=== PATIENT | male | born 1960 | race Caucasian/White ===

== ENCOUNTER 2016-10-30 10:32 | Inpatient (IN) | payer BC ==
[2016-10-30] VITALS (13 sets, daily range): BP systolic 138–192; BP diastolic 82–105; PULSE 90–112; RESP 19–21; TEMP 97.8–98.4; O2SAT 96–100
[2016-10-30] MEDS ORDERED: PROPOFOL 500 MG/50 ML INJ 0 ML ONE (10:36)
[2016-10-30] MEDS ORDERED: PROPOFOL 1000 MG/100 ML INJ 100 ML ONE (10:36)
[2016-10-30] MEDS ORDERED: ceFAZolin 2 GM PREMIX 50 ML ONE (10:43)
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
[2016-10-30 10:56] LABS: I-STAT POTASSIUM 4.3 MMOL/L (3.5-4.9)
[2016-10-30 10:59] LABS: AUTOMATED NEUTROPHIL # 10.5 TH/MM3 (1.8-7.7); BASOPHIL # 0.1 TH/MM3 (0-0.2); BASOPHIL % 0.4 % (0.0-2.0); EOSINOPHIL # 0.3 TH/MM3 (0-0.4); EOSINOPHIL % 2.4 % (0.0-4.0); HEMATOCRIT 42.8 % (39.0-51.0); HEMO FLAGS DIFF FINAL; LYMPH % 14.6 % (9.0-44.0); MEAN CELL VOLUME 89.7 FL (80.0-100.0); MEAN CORPUSCULAR HEMOGLOBIN 29.5 PG (27.0-34.0); MEAN CORPUSCULAR HGB CONC 32.8 % (32.0-36.0); MONO % 6.7 % (0.0-8.0); NEUT % 75.9 % (16.0-70.0); PLATELET COUNT 431 TH/MM3 (150-450); RED BLOOD COUNT 4.78 MIL/MM3 (4.50-5.90); RED CELL DISTRIBUTION WIDTH 13.8 % (11.6-17.2); WHITE BLOOD COUNT 13.8 TH/MM3 (4.0-11.0)
[2016-10-30] MEDS ORDERED: MISCELLANEOUS NURSING INFORMATION XX SCH (11:00)
[2016-10-30] MEDS ORDERED: MORPHINE SULFATE 4 MG/ML INJ IV PRN ×2 (11:00→20:00)
[2016-10-30] MEDS ORDERED: MAGNESIUM HYDROXIDE SUSP 30 ML CUP PO PRN (11:00)
[2016-10-30] MEDS ORDERED: ENALAPRILAT 1.25 MG/ML VIAL IV PRN (11:00)
[2016-10-30] MEDS ORDERED: SODIUM CHLORIDE 0.9% FLUSH 10 ML FLUSH IV FLUSH PRN (11:00)
[2016-10-30] MEDS ORDERED: ONDANSETRON HCL 4 MG/2 ML VIAL IV PRN (11:00)
[2016-10-30] MEDS ORDERED: ACETAMINOPHEN 325 MG TAB PO PRN (11:00)
--- NOTE | 2016-10-30 11:00 | RADRPT ---
EXAM DATE/TIME: 10/30/2016 10:25 [facility] COMPARISON: No previous studies available for comparison. INDICATIONS : Trauma from fall, pain. MEDICAL HISTORY : None. SURGICAL HISTORY : None. ENCOUNTER: Initial ACUITY: 1 day PAIN SCORE: Non-responsive. LOCATION: Bilateral chest FINDINGS: The lungs are under aerated. The cardiomediastinal contours are unremarkable. Osseous structures ar e intact. CONCLUSION: Under aerated otherwise negative. Mike Reeves MD FACR on October 30, 2016 at 10:58 Board Certified Radiologist. This report was verified electronically.
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
[2016-10-30] MEDS ORDERED: IOHEXOL 350 MG/ML 10 ML VIAL (for RAD DIAG) IVCONTRAST ONE (11:04)
[2016-10-30 11:09] LABS: APTT (PATIENT) 21.6 SEC (24.3-30.1); INTERNATIONAL NORMALIZED RATIO 0.9 RATIO; PROTHROMBIN TIME - PATIENT 10.4 SEC (9.8-11.6)
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
[2016-10-30] MEDS ORDERED: VECURONIUM BROMIDE 10 MG VIAL ONE (11:20)
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
[2016-10-30] MEDS: SODIUM CHLOR 0.9% 1000 ML INJ 1,000 ML IV SCH ×2 (12:00→23:20)
[2016-10-30] MEDS ORDERED: LABETALOL HCL 100 MG/20 ML VIAL IV PUSH PRN (12:15)
[2016-10-30] MEDS ORDERED: MORPHINE SULFATE 4 MG/ML INJ IV PUSH PRN (12:15)
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
[2016-10-30] MEDS ORDERED: LIDOCAINE HCL 5% PATCH T-DERMAL SCH (12:30)
[2016-10-30] MEDS ORDERED: HYDROmorphone HCL PF 1 MG/ML VIAL IV PUSH ONE (13:15)
[2016-10-30] MEDS: LIDOCAINE HCL 5% PATCH T-DERMAL SCH (13:16)
[2016-10-30] MEDS: PANTOPRAZOLE SODIUM 40 MG VIAL IVP SCH (13:16)
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
[2016-10-30] MEDS ORDERED: KETOROLAC TROMETHAMINE 30 MG/ML (IVP) VIAL IV PUSH SCH (18:00)
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
[2016-10-30] MEDS: CHLORHEXIDINE 0.12% (ORAL KIT) 15 ML CUP MT SCH (19:51)
[2016-10-30] MEDS: ACETAMINOPHEN/HYDROcodone 325 MG/5 MG TAB PO PRN (20:05)
[2016-10-30] MEDS: KETOROLAC TROMETHAMINE 30 MG/ML (IVP) VIAL IV PUSH PRN (23:16)
[2016-10-31] VITALS (11 sets, daily range): BP systolic 127–159; BP diastolic 68–82; PULSE 68–96; RESP 15–28; TEMP 98.1–98.8; O2SAT 97–99
[2016-10-31] MEDS: REMOVE OLD LIDOCAINE PATCH T-DERMAL SCH (02:03)
[2016-10-31] MEDS: ACETAMINOPHEN/HYDROcodone 325 MG/10 MG TAB PO PRN ×2 (02:44→09:29)
--- NOTE | 2016-10-31 05:25 | RADRPT ---
EXAM DATE/TIME: 10/31/2016 04:10 [facility] COMPARISON: CHEST SINGLE AP, October 30, 2016, 10:25. INDICATIONS : Chest and rib pain post trauma alert. MEDICAL HISTORY : None. SURGICAL HISTORY : None. ENCOUNTER: Subsequent ACUITY: 2 days PAIN SCORE: 8/10 LOCATION: Bilateral chest FINDINGS: A single view of the chest demonstrates the lungs to be symmetrically hypoinflated but clear of acute infiltrate. No effusions. Accounting for low lung volume heart size is normal. Anterior fixation of the lower cervical spine. Right clavicular fracture and possible right scapular fracture with degener ative changes of the dorsal spine.. CONCLUSION: 1. Hypoinflation. Lungs are clear. 2. Right clavicular and possible right scapular fractures. Emeterio Goldsmith MD on October 31, 2016 at 5:21 Board Certified Radiologist. This report was verified electronically.
[2016-10-31] MEDS: KETOROLAC TROMETHAMINE 30 MG/ML (IVP) VIAL IV PUSH PRN ×2 (05:59→19:07)
[2016-10-31 07:33] LABS: AUTOMATED NEUTROPHIL # 3.7 TH/MM3 (1.8-7.7); BASOPHIL % 0.2 % (0.0-2.0); EOSINOPHIL % 0.2 % (0.0-4.0); HEMATOCRIT 37.9 % (39.0-51.0); HEMO FLAGS DIFF FINAL; LYMPH % 16.5 % (9.0-44.0); MEAN CELL VOLUME 89.6 FL (80.0-100.0); MEAN CORPUSCULAR HEMOGLOBIN 29.8 PG (27.0-34.0); MEAN CORPUSCULAR HGB CONC 33.3 % (32.0-36.0); MONO % 18.8 % (0.0-8.0); NEUT % 64.3 % (16.0-70.0); PLATELET COUNT 348 TH/MM3 (150-450); RED BLOOD COUNT 4.24 MIL/MM3 (4.50-5.90); RED CELL DISTRIBUTION WIDTH 13.5 % (11.6-17.2); WHITE BLOOD COUNT 5.8 TH/MM3 (4.0-11.0)
[2016-10-31 07:56] LABS: BICARBONATE 25.5 MEQ/L (21.0-32.0); POTASSIUM 3.8 MEQ/L (3.5-5.1)
[2016-10-31] MEDS: CHLORHEXIDINE 0.12% (ORAL KIT) 15 ML CUP MT SCH ×2 (08:00→20:00)
[2016-10-31] MEDS: METHOCARBAMOL 500 MG TAB PO SCH ×3 (09:28→22:00)
[2016-10-31] MEDS: DOCUSATE SODIUM 100 MG CAP PO SCH ×2 (09:28→20:53)
[2016-10-31] MEDS: SODIUM CHLOR 0.9% 1000 ML INJ 1,000 ML IV SCH ×2 (09:29→18:41)
[2016-10-31] MEDS: BACITRACIN TOP OINT 15 GM TUBE TOP SCH ×2 (09:29→20:54)
[2016-10-31] MEDS: ENOXAPARIN SODIUM 40 MG/0.4 ML SYRINGE SQ SCH (11:59)
[2016-10-31] MEDS: PANTOPRAZOLE SODIUM 40 MG VIAL IVP SCH (12:00)
[2016-10-31] MEDS: LIDOCAINE HCL 5% PATCH T-DERMAL SCH (12:00)
--- NOTE | 2016-10-31 12:15 | HHI.CCPN ---
Subjective Brief History 64-year-old male fell off the roof was brought in as per T1 trauma alert intubated and ventilated and a spinal board with c-collar in place. Apparently patient was unresponsive on seen could not protect his upper airway and has been intubation Patient underwent full diagnostic workup and is noted to have following injuries Brain concussion and retrograde amnesia Right comminuted clavicular fracture Right scapular fracture First second and third rib fracture 24 Hour Review/Hospital Course On arrival patient is intubated and ventilated since then has been extubated by the intensive care team Patient is awake alert but somewhat repetitive questions clearly sustaining brain concussion in retrograde amnesia Patient does not remember anything of the accident or events preceding 10/31/16 Patient doing well he is awake alert and oriented and now remembers being on the roof Some pain in the chest consistent with fractured ribs and fractured clavicle Will place sling Abdomen is soft active bowel sounds transfer patient to the floor Likely patient will be able to go home and next day or two Objective Vital Signs Date Time Temp Pulse Resp B/P (MAP) Pulse Ox O2 Delivery O2 Flow Rate FiO2 10/31/16 10:00 78 10/31/16 08:00 98.8 20 130/76 (94) 97 10/31/16 07:00 Nasal Cannula 2.00 10/30/16 11:12 100 Intake and Output 10/31/16 10/31/16 11/01/16 08:00 16:00 00:00 Intake Total 1385 ml 1000 ml Output Total 400 ml Balance 985 ml 1000 ml Result Diagram: 10/31/16 0600 10/31/16 0600 Imaging Last 24 hours Impressions Chest X-Ray 10/31/16 0000 Signed Impressions: Service Date/Time: Monday, October 31, 2016 04:10 - CONCLUSION: 1. Hypoinflation. Lungs are clear. 2. Right clavicular and possible right scapular fractures. Emeterio Goldsmith MD Exam [employer] AD[employer]ISTRATOR Awake alert oriented Hemodynamic/Cardiac Hemodynamically intact Pulmonary/Respiratory Bilateral good breath sounds and minimal pulmonary contusion underlying the rib fractures Abdomen/GI Nutrition Abdomen soft active bowel sounds diet well tolerated Renal/I&O Preserved renal function Assessment and Plan Attestation Transfer patient to floor out of bed and extensive physical and occupational therapy Critical care 35 minutes Sushma Matos MD Oct 31, 2016 12:15
[2016-10-31] MEDS: ACETAMINOPHEN/HYDROcodone 325 MG/5 MG TAB PO PRN (14:16)
--- NOTE | 2016-10-31 14:40 | MB ---
cc: FRANCES JURADO DATE OF CONSULTATION: 10/31/2016. ALSO KNOWN : ANIKET [id number]. REASON FOR CONSULTATION: Right-sided clavicle fracture. Right scapula fracture. HISTORY OF PRESENT ILLNESS: This patient is a male in his 50s who was brought to the [facility] as a trauma alert after a fall off a roof. He is a resident of [place]. He came down to [place] where he has a house there as well to check on the house. He was on the roof. He fell off the roof. He believes he had loss of consciousness because he does not have recollection of exactly what happened. He was initially intubated at the scene due to concern for head injury and airway protection. After transfer to [facility], he has been extubated. He is currently in the intensive care unit. Imaging to include x-ray and CT scan has been performed, which does show evidence of a right-sided scapula fracture and clavicle fracture. He also had some rib fractures on the right side. He sustained a scalp laceration as well. He is currently awake and alert and sitting at the bedside with his accompanying him. PAST MEDICAL HISTORY: His past medical history is negative. ALLERGIES: CODEINE. REVIEW OF SYSTEMS: A twelve-point review of systems is negative other than the history of present illness. MEDICATIONS: He does not take any medications at home. SOCIAL HISTORY: Nonsmoker and non-drinker. PHYSICAL EXAMINATION: VITAL SIGNS: Temperature 98, pulse is 80, respirations 16, blood pressure is 155/88. HEAD, EYES, EARS, NOSE, THROAT: Normocephalic. He has a closed laceration on the scalp. NECK: The neck is supple. LUNGS: Clear. HEART: Regular rate and rhythm. ABDOMEN: Abdomen soft and nontender. EXTREMITIES: The right shoulder and scapular regions have swelling and ecchymosis. The compartments are soft. He can flex and extend his elbows, wrists and digits, 2+ radial pulses bilaterally. The compartments are soft. LABORATORY STUDIES: White blood cell count is 13, hemoglobin is 14, hematocrit is 42. RADIOLOGICAL STUDIES: Chest x-ray does show evidence of a right scapular fracture and right clavicle fracture. CT scan of the chest is also reviewed, which shows a comminuted fracture of the distal right clavicle, mildly displaced fracture of the right scapula, a fracture of the medial aspect of the right first rib, nondisplaced fracture lateral aspect of the right third rib, pulmonary contusion. IMPRESSION: This is a male in his 50s who fell off a roof and had multiple injuries including multiple right-sided rib fractures, right scapular fracture, right distal clavicle fracture. He also sustained a head injury with loss of consciousness although no evidence of intracranial bleed. He has been extubated. He is awake and alert. PLAN: I discussed the diagnosis with the patient. I recommend nonoperative treatment for the orthopedic injuries as outlined above. Sling and swathe immobilization and protection for his fractures. He will be discharged from the hospital and can have follow up with the undersigned in the [facility] or with his orthopedic surgeon in [place], if he returns home. All questions have been answered. MD PANTERA Guillermo/VICENTE /11:11 AM /2:28 PM
--- NOTE | 2016-10-31 16:47 | HHI.CCPN ---
Subjective Remarks/Hospital Course About 54 y/o man fell off roof striking the back of his head. Intubated on scene for inability to protect airway. Head CT benign. C-spines NL, s/p old fusion. Fractures right posterior ribs, scapula, and comminuted right clavicle. CT hest with basilar contusions. T and L spines pending. CT abdomen benign. 10/31: Extubated about 20 hours ago. Amnesic for event but chcf memory good. Somnolent but follows commands and conversant. Recent pain medication. Objective Vital Signs Date Time Temp Pulse Resp B/P (MAP) Pulse Ox O2 Delivery O2 Flow Rate FiO2 10/31/16 15:14 26 10/31/16 14:00 80 10/31/16 12:00 98.7 154/82 (106) 97 10/31/16 07:00 Nasal Cannula 2.00 10/30/16 11:12 100 Intake and Output 10/31/16 10/31/16 11/01/16 08:00 16:00 00:00 Intake Total 1385 ml 1000 ml Output Total 400 ml Balance 985 ml 1000 ml Result Diagram: 10/31/16 0600 10/31/16 0600 Objective Remarks Head: Contusion and closed laceration occiput. Neck: Chronically stiff, old fusion. No tenderness. Airway widely patent. Lungs: Clear, no adventitious sounds. Comfortable pattern. Heart: NL S1S2, RRR. No JVD. Abdomen: Soft, no guarding, BS active. Extremities: Abrasions left toes. Well perfused. Warm. Neuro: Moves 4 limbs spontaneously. O X 3, cooperative. Follows commands. Headache. EOMs, pupil response, tongue protrusion, smile, grimace symmetrical and/or intact A/P Assessment and Plan Assessment: 1. Fall from roof with LOC 2. Closed head injury. 3. Multiple upper thorax fractures. 4. Hypertension. Plan: 1. NC O2. 2. Repeat head CT for routine followup. 3. Swallow evaluation.. 4. Pepcid. 5. SCDs. 6. IV isotonic fluid. 7. Ongoing tertiary survey. 8. Ortho has seen right clavicle/ shoulder Overall impression: Non-focal neurological exam after fall from height with LOC. Protects airway well. Azam Yip MD Oct 31, 2016 16:47
--- NOTE | 2016-10-31 18:41 | RADRPT ---
EXAM DATE/TIME: 10/31/2016 18:12 [facility] COMPARISON: CT BRAIN W/O CONTRAST, October 30, 2016, 10:46. INDICATIONS : One day status post closed head injury: fall from height. RADIATION DOSE: 56.35 CTDIvol (mGy) MEDICAL HISTORY : Hypertension. SURGICAL HISTORY : Cholecystectomy. ENCOUNTER: Subsequent ACUITY: 1 day PAIN SCALE: 7/10 LOCATION: Bilateral head TECHNIQUE: Multiple contiguous axial images were obtained of the head. Using automated exposure control and adj ustment of the mA and/or kV according to patient size, radiation dose was kept as low as reasonably a chievable to obtain optimal diagnostic quality images. DICOM format image data is available electro nically for review and comparison. FINDINGS: CEREBRUM: The ventricles are normal for age. No evidence of midline shift, mass lesion, hemorrhage or acute in farction. No extra-axial fluid collections are seen. POSTERIOR FOSSA: The cerebellum and brainstem are intact. The 4th ventricle is midline. The cerebellopontine angle i s unremarkable. EXTRACRANIAL: The visualized portion of the orbits is intact. SKULL: The calvaria is intact. No evidence of skull fracture. CONCLUSION: No bleed or other acute intracranial abnormality demonstrated. Cesar Walls MD on October 31, 2016 at 18:38 Board Certified Radiologist. This report was verified electronically.
[2016-10-31] MEDS: METOPROLOL SUCCINATE 25 MG EXTENDED RELEASE TAB PO SCH (20:53)
[2016-11-01] VITALS: BP 159/84; PULSE 71; RESP 22; TEMP 97.9; O2SAT 99
[2016-11-01] MEDS: REMOVE OLD LIDOCAINE PATCH T-DERMAL SCH (01:00)
[2016-11-01] MEDS: KETOROLAC TROMETHAMINE 30 MG/ML (IVP) VIAL IV PUSH PRN (01:10)
[2016-11-01 01:30] VITALS: BP 154/88; PULSE 72; RESP 18; TEMP 96.9; O2SAT 99
[2016-11-01] MEDS: ACETAMINOPHEN/HYDROcodone 325 MG/10 MG TAB PO PRN ×3 (01:32→12:21)
[2016-11-01] MEDS ORDERED: COZA25TA PO (01:40)
[2016-11-01] MEDS ORDERED: TAMS0.4C4 PO (01:40)
[2016-11-01] MEDS: SODIUM CHLOR 0.9% 1000 ML INJ 1,000 ML IV SCH (02:19)
[2016-11-01] MEDS: METHOCARBAMOL 500 MG TAB PO SCH ×2 (04:31→14:10)
[2016-11-01 04:55] VITALS: BP 121/79; PULSE 61; RESP 18; TEMP 97; O2SAT 98
--- NOTE | 2016-11-01 05:29 | RADRPT ---
EXAM DATE/TIME: 11/01/2016 04:19 [facility] COMPARISON: CHEST SINGLE AP, October 31, 2016, 4:10. INDICATIONS : Chest and rib pain post Trauma alert. MEDICAL HISTORY : None. SURGICAL HISTORY : None. ENCOUNTER: Subsequent ACUITY: 3 days PAIN SCORE: 7/10 LOCATION: Bilateral chest FINDINGS: A single view of the chest demonstrates the lungs to be symmetrically, but under aerated without evid ence of mass, infiltrate or effusion. The cardiomediastinal contours are unremarkable. Comminuted ri ght clavicular as well as a right scapular fracture. CONCLUSION: 1. Right scapular and clavicular fractures. 2. Stable hypoinflation with no acute infiltrate. Emeterio Goldsmith MD on November 01, 2016 at 5:26 Board Certified Radiologist. This report was verified electronically.
[2016-11-01 07:21] VITALS: BP 146/91; PULSE 65; RESP 18; TEMP 96.9; O2SAT 99
[2016-11-01] MEDS ORDERED: LACTULOSE SYRUP 20 GM/30 ML CUP PO PRN (07:45)
[2016-11-01] MEDS: METOPROLOL SUCCINATE 25 MG EXTENDED RELEASE TAB PO SCH (08:00)
[2016-11-01] MEDS: RESP: ALBUTEROL 2.5 MG/IPRATROPIUM 0.5 MG NEB (SCH) NEB ×3 (08:00→19:39)
[2016-11-01] MEDS ORDERED: DOCUSATE SODIUM 50 MG/SENNA 8.6 MG TAB PO SCH (09:00)
[2016-11-01] MEDS ORDERED: FAMOTIDINE 20 MG TAB PO SCH (09:00)
[2016-11-01 10:04] LABS: AUTOMATED NEUTROPHIL # 5.3 TH/MM3 (1.8-7.7); BASOPHIL % 0.3 % (0.0-2.0); EOSINOPHIL # 0.1 TH/MM3 (0-0.4); EOSINOPHIL % 0.9 % (0.0-4.0); HEMATOCRIT 35.1 % (39.0-51.0); HEMO FLAGS DIFF FINAL; LYMPH % 11.5 % (9.0-44.0); LYMPHOCYTE # 0.8 TH/MM3 (1.0-4.8); MEAN CORPUSCULAR HEMOGLOBIN 30.3 PG (27.0-34.0); MEAN CORPUSCULAR HGB CONC 33.6 % (32.0-36.0); MONO % 13.4 % (0.0-8.0); NEUT % 73.9 % (16.0-70.0); PLATELET COUNT 314 TH/MM3 (150-450); RED CELL DISTRIBUTION WIDTH 13.5 % (11.6-17.2); WHITE BLOOD COUNT 7.2 TH/MM3 (4.0-11.0)
[2016-11-01] MEDS: KETOROLAC TROMETHAMINE 30 MG/ML (IVP) VIAL IV PUSH SCH ×2 (10:15→16:15)
[2016-11-01 10:30] LABS: ANION GAP 6 MEQ/L (5-15); AST (GOT) 44 U/L (15-37); BICARBONATE 28.4 MEQ/L (21.0-32.0); BLOOD UREA NITROGEN 13 MG/DL (7-18); CHLORIDE 106 MEQ/L (98-107); GLOMERULAR FILTRATION RATE 134 ML/MIN (>89); POTASSIUM 3.7 MEQ/L (3.5-5.1); SODIUM (NA) 140 MEQ/L (136-145)
[2016-11-01 10:32] LABS: ALT (GPT) 29 U/L (12-78)
[2016-11-01 10:33] LABS: ALKALINE PHOSPHATASE 58 U/L (45-117); TOTAL BILIRUBIN ADULT 0.9 MG/DL (0.2-1.0)
[2016-11-01] MEDS ORDERED: fentaNYL 25 MCG/HR PATCH T-DERMAL SCH (11:00)
[2016-11-01 11:15] VITALS: BP 166/88; PULSE 62; RESP 18; TEMP 97.2; O2SAT 98
[2016-11-01] MEDS ORDERED: KETO10 PO (11:51)
[2016-11-01] MEDS ORDERED: LIDO5DIS5 T-DERMAL (11:51)
[2016-11-01] MEDS ORDERED: HYDR-3516 PO ×2 (11:51→11:54)
[2016-11-01] MEDS ORDERED: WALKER WHEELS/F1 MIS (11:58)
[2016-11-01] MEDS: LIDOCAINE HCL 5% PATCH T-DERMAL SCH (12:08)
[2016-11-01] MEDS: ENOXAPARIN SODIUM 40 MG/0.4 ML SYRINGE SQ SCH (12:09)
[2016-11-01] MEDS ORDERED: LOSARTAN 25 MG TAB PO SCH (13:00)
--- NOTE | 2016-11-01 13:28 | HHI.DS ---
Discharge Summary Admission Date Oct 30, 2016 at 10:49 Discharge Date: Nov 01, 2016 Admitting Diagnosis trauma alert, head injury, intubated Brief History S/P Trauma: Fall CBC/BMP: 11/01/16 0919 11/01/16 0919 Significant Findings Laboratory Tests Test 10/30/16 10:35 10/31/16 06:00 11/01/16 09:19 White Blood Count 13.8 TH/MM3 (4.0-11.0) Neutrophils (%) (Auto) 75.9 % (16.0-70.0) 73.9 % (16.0-70.0) Neutrophils # (Auto) 10.5 TH/MM3 (1.8-7.7) Activated Partial Thromboplast Time 21.6 SEC (24.3-30.1) Bedside Glucose 132 MG/DL (60-95) Red Blood Count 4.24 MIL/MM3 (4.50-5.90) 3.90 MIL/MM3 (4.50-5.90) Hemoglobin 12.6 GM/DL (13.0-17.0) 11.8 GM/DL (13.0-17.0) Hematocrit 37.9 % (39.0-51.0) 35.1 % (39.0-51.0) Monocytes (%) (Auto) 18.8 % (0.0-8.0) 13.4 % (0.0-8.0) Monocytes # (Auto) 1.1 TH/MM3 (0-0.9) 1.0 TH/MM3 (0-0.9) Random Glucose 112 MG/DL (74-106) Calcium Level 8.4 MG/DL (8.5-10.1) Lymphocytes # (Auto) 0.8 TH/MM3 (1.0-4.8) Albumin 3.1 GM/DL (3.4-5.0) Aspartate Amino Transf (AST/SGOT) 44 U/L (15-37) Imaging Last Impressions Chest X-Ray 11/01/16 0600 Signed Impressions: Service Date/Time: Tuesday, November 01, 2016 04:19 - CONCLUSION: 1. Right scapular and clavicular fractures. 2. Stable hypoinflation with no acute infiltrate. Emeterio Goldsmith MD Head CT 10/31/16 0000 Signed Impressions: Service Date/Time: Monday, October 31, 2016 18:12 - CONCLUSION: No bleed or other acute intracranial abnormality demonstrated. Cesar Walls MD Chest CT [id number]/30/[id number] Signed Impressions: Service Date/Time: Sunday, October 30, 2016 10:48 - CONCLUSION: 1. Severely comminuted fracture of the distal right clavicle. 2. Mildly displaced fracture of the right scapula. 3. Fracture of the medial aspect of the right first rib. 4. Nondisplaced fracture of the lateral aspect of the right third rib. 5. Small areas of atelectasis/contusion in the lung bases. 6. Contusion of the anterior right chest wall with gas in the subcutaneous soft tissues. Stephane Reeves MD Cervical Spine CT 10/30/161043 Signed Impressions: Service Date/Time: Sunday, October 30, 2016 10:48 - CONCLUSION: 1. No acute fracture of the cervical spine identified. 2. Previous anterior cervical fusion from C5 down to C7. Stephane Reeves MD Abdomen/Pelvis CT 10/30/161043 Signed Impressions: Service Date/Time: Sunday, October 30, 2016 10:48 - CONCLUSION: 1. Mild enlargement of the prostate. 2. Degenerative changes of the lumbar spine. 3. No acute intra-abdominal abnormality identified. 4. The patient is post cholecystectomy. Stephane Reeves MD PE at Discharge GENERAL: 56-year-old well-nourished, well developed male lying in bed. SKIN: Warm and dry. HEAD: Normocephalic. NECK: Trachea midline. No JVD. CARDIOVASCULAR: Regular rate and rhythm. RESPIRATORY: No accessory muscle use. Lungs clear and diminished to auscultation. Breath sounds equal bilaterally. GASTROINTESTINAL: Abdomen soft, non-tender, nondistended. + BS. MUSCULOSKELETAL: Extremities without cyanosis, or edema. RUE sling in place. MAEW, + peripheral pulses x4. NEUROLOGICAL: Awake and alert. Normal speech. Hospital Course [place]ICK[place]ANCH: Fell from 10-20 feet striking his head on the concrete. GCS=8-9, but worsened and required intubation in the field. INJURIES: Posterior scalp lac (7 davonte) RIGHT clavicle fx (non-op) RIGHT scapula fx (non-op) RIGHT rib fx (1, 3) Atelectasis / contusions Concussion PMHx: HTN, BPH 10/30: Intubated 10/30: Extubated Diet: Regular Pulm: IS, EZ-PAP with nebs Pain: Rogers. Morphine IV. Robaxin. Toradol. Lidoderm patch. Activity: OOB. PT and OT ordered. (NWB RUE- maintain sling and swath) GI: Pepcid Bowel: Nicol-colace. PRN Lactulose LBM: 0 DVT: SCD's. Lovenox 40 QD Posterior scalp lac Cleanse wound daily with soap and water Leave open to air Staple removal in 8-10 days RIGHT clavicle fx, RIGHT scapula fx Orthopedics consulted Non-operative management Maintain sling and swath when OOB Pain control NWB RUE OOB- PT and OT ordered RIGHT rib fxs, Atelectasis/pulmonary contusions Supportive care Pulmonary toileting Pain control OOB Concussion Supportive care Avoid second head injury Post-concussive education Plan of care discussed with patient and his at bedside. Patient is clear from trauma surgery standpoint to safely discharge home. Pt Condition on Discharge: Stable Discharge Disposition: Discharge Home Discharge Instructions DIET: Follow Instructions for: As Tolerated, No Restrictions Activities you can perform: See Additionl Instruction Activities to Avoid: Concussion Sports, Strenuous Activity Other Activity Instructions: NONWEIGHT BEARING RIGHT ARM, WEAR SLING WHEN OUT OF BED. Kathi Mathur Nov 01, 2016 13:28
[2016-11-01] MEDS: BACITRACIN TOP OINT 15 GM TUBE TOP SCH (14:11)
[2016-11-01 16:00] VITALS: BP 133/79; PULSE 61; RESP 18; TEMP 97.2; O2SAT 94
--- NOTE | 2016-11-01 19:06 | RADRPT ---
EXAM DATE/TIME: 10/29/2016 17:28 [facility] COMPARISON: No previous studies available for comparison. INDICATIONS : Trauma Alert, fell off roof 20ft. MEDICAL HISTORY : None. SURGICAL HISTORY : None. ENCOUNTER: Initial ACUITY: 1 day PAIN SCORE: Non-responsive. LOCATION: Bilateral pelvis FINDINGS: The study was resubmitted for formal interpretation on 11/01. A single frontal view of the pelvis demo nstrates no evidence of fracture. The bony pelvic ring is intact. Bony mineralization is normal. T he soft tissues are intact. CONCLUSION: Intact pelvis. Cesar Walls MD on November 01, 2016 at 19:03 Board Certified Radiologist. This report was verified electronically.
[2016-11-01] MEDS ORDERED: TAMSULOSIN HCL 0.4 MG CAP PO SCH (21:00)
[2016-11-04] MEDS ORDERED: REMOVE OLD DURAGESIC (FENTANYL) PATCH T-DERMAL SCH (11:00)
== END 2016-11-01 20:00 | disposition home or self-care (01) | DRG 88 ==
LOC: NEPI 10:32 → NEDA 10:49 → EDBD 10:49 → N03B 11:57 → N06B 11-01 01:23
PROVIDERS: ADMIT Surgery; ATTEND Surgery
PROC: 0HQ0XZZ Repair Scalp Skin, External Approach (ICD-10-PCS; principal; 2016-10-30)
PROC: 5A1935Z Respiratory Ventilation, Less than 24 Consecutive Hours (ICD-10-PCS; 2016-10-30)
DX: S06.0X9A Concussion with loss of consciousness of unspecified duration, initial encounter (principal); J96.90 Respiratory failure, unspecified, unspecified whether with hypoxia or hypercapnia; S22.41XA Multiple fractures of ribs, right side, initial encounter for closed fracture; S27.321A Contusion of lung, unilateral, initial encounter; J98.11 Atelectasis; S01.01XA Laceration without foreign body of scalp, initial encounter; I10 Essential (primary) hypertension; S42.031A Displaced fracture of lateral end of right clavicle, initial encounter for closed fracture; S42.101A Fracture of unspecified part of scapula, right shoulder, initial encounter for closed fracture; R40.2431 Glasgow coma scale score 3-8, in the field [EMT or ambulance]; S90.415A Abrasion, left lesser toe(s), initial encounter; R41.2 Retrograde amnesia; N40.0 Benign prostatic hyperplasia without lower urinary tract symptoms; W13.2XXA Fall from, out of or through roof, initial encounter; Z88.5 Allergy status to narcotic agent; Z98.1 Arthrodesis status
CPT/HCPCS: 12014; 70450; 71010; 71260; 72125; 72170; 74177; 80048; 80053; 82435; 82565; 82947; 84132; 84295; 84520; 85025; 85610; 85730; 86850; 86900; 86901; 87641; 94002; 96374; 96375; 99291; C9113; G0390; J0690; J1170; J1650; J1885; J2270; J2405; J7030; Q9967